=== PATIENT | male | born 1960 | race Caucasian/White ===

== ENCOUNTER 2023-11-18 07:31 | Day surgery (SDC) | payer MEDICAID, SELFPAY ==
[2023-11-18 07:50] VITALS: BP 117/82; PULSE 76; RESP 16; TEMP 36.3; O2SAT 99
[2023-11-18] MEDS: Lidocaine Jelly 2% 20 ML Syringe (URO-JET) 1 APPLIC (07:54)
== END 2023-11-18 08:35 | disposition home or self-care (01) ==
PROVIDERS: PCP Internal Medicine Infectious Disease; Referring Provider Internal Medicine Gastroenterology; Visit Provider Internal Medicine Gastroenterology
PROC: F00ZJWZ Instrumental Swallowing and Oral Function Assessment using Swallowing Equipment (ICD-10-PCS; CPT 43235; principal; 2023-11-18 07:25)
DX: K22.89 Other specified disease of esophagus (principal)
CPT/HCPCS: 91010

== ENCOUNTER 2023-11-29 11:22 | Day surgery (SDC) | payer MEDICAID, SELFPAY ==
[2023-11-29] VITALS (7 sets, daily range): BP systolic 86–127; BP diastolic 53–73; PULSE 82–88; RESP 16; TEMP 36.2–36.8; O2SAT 91–98; BMI 27.6
[2023-11-29] MEDS: Lactated Ringers 1,000 ML 15 ML IV (12:25)
--- NOTE | 2023-11-29 12:30 | EGD_PTH ---
PATIENT: VICENTA ERWIN LOC: EN U#:[id number] AGE/SX: 63/M ROOM: RE11/29/[address]: Dr. Mika Naranjo DO : 1960 BED: DIS: 11/29/2023 SPEC #: [id number] RECD: 11/29/23 14:17 STATUS: JOHANA MIKALA #: [id number] MARIA E: 11/29/23 12:[address]: Mika Naranjo DEPT: SURGICAL PATHOLOGY RECD BY: Ambreen Dowd ENTERED: 11/30/23 10:49 SP TYPE: EGD BIOPSY DACIA DR: Dr. Eduin Martin MD Tissues: Esophagus, NOS Procedures: Special Stain Group I Surgery Specimen Level IV Alcian Blue/PAS (control) HEADER OPERATION: EGD with biopsy and dilatation PRE-OP DIAGNOSIS: Dysphagia TISSUE SUBMITTED: Distal esophagus biopsy MICROSCOPIC DIAGNOSIS Distal esophagus, biopsy: Fragments of gastroesophageal mucosa with chronic inflammation. Intestinal metaplasia (goblet cell metaplasia) not identified. See comment. / 12/01/2023 COMMENT Alcian blue/PAS stain with matched control is used in the evaluation of the specimen. MICROSCOPIC DESCRIPTION Slides are reviewed. GROSS DESCRIPTION Received in fixative is one container labeled with the patient's name and designated Distal esophagus. The specimen consists of two irregular fragments of light ballesteros soft tissue that in aggregate measure 0.6 x 0.4 x 0.1 cm. The specimen is totally submitted in one cassette. / 11/30/2023 TC:3 CPT:78739,64189
[2023-11-29 12:58] LABS: Bedside Glucose 191 mg/dL (74-106)
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
--- NOTE | 2023-11-29 14:04 | OP.CCLET_ITS ---
11/29/2023 Eduin Martin [address] [place] [address] Re : Upper GI endoscopy procedure for Cesar Lakeshia Dear Dr. Maritn This procedure was performed on Wednesday, November 29, 2023. My impressions and recommendations are as follows: Impressions : - Benign-appearing esophageal stenosis. Dilated. - Z-line irregular, 40 cm from the incisors. Biopsied. - Normal stomach. - No gross lesions in the duodenal bulb. Recommendations : - Discharge patient to home. - Resume previous diet. - Continue present medications. - Await pathology results. My findings are described in the full procedure note, which is enclosed. If I can be of further assistance, please feel free to contact me at . Sincerely, Mika Friend, 11/29/2023 2:04:05 PM This report has been signed electronically.
--- NOTE | 2023-11-29 14:04 | OP.EGD_ITS ---
Patient Name: Csear Asher Procedure Date: 11/29/2023 1:46 PM Date of : 1960 Age: 63 Procedure: Upper GI endoscopy Indications: Dysphagia Providers: Mika Naranjo DO Medicines: Monitored Anesthesia Care Patient Profile: This is a 63 year old male. Refer to note in patient chart for documentation of history and physical. Patient has symptoms of chronic epigastric abdominal pain and chronic dysphagia. Complications: No immediate complications. Procedure: Pre-Anesthesia Assessment: - Prior to the procedure, a History and Physical was performed, and patient medications and allergies were reviewed. The patient is competent. The risks and benefits of the procedure and the sedation options and risks were discussed with the patient. All questions were answered and informed consent was obtained. Patient identification and proposed procedure were verified by the physician in the pre-procedure area. Mental Status Examination: alert and oriented. Airway Examination: normal oropharyngeal airway and neck mobility. Respiratory Examination: clear to auscultation. CV Examination: normal. Prophylactic Antibiotics: The patient does not require prophylactic antibiotics. Prior Anticoagulants: The patient has taken no anticoagulant or antiplatelet agents. ASA Grade Assessment: III - A patient with severe systemic disease. After reviewing the risks and benefits, the patient was deemed in satisfactory condition to undergo the procedure. The anesthesia plan was to use monitored anesthesia care (MAC). Immediately prior to administration of medications, the patient was re-assessed for adequacy to receive sedatives. The heart rate, respiratory rate, oxygen saturations, blood pressure, adequacy of pulmonary ventilation, and response to care were monitored throughout the procedure. The physical status of the patient was re-assessed after the procedure. After obtaining informed consent, the endoscope was passed under direct vision. Throughout the procedure, the patient's blood pressure, pulse, and oxygen saturations were monitored continuously. The gastroscope was introduced through the mouth, and advanced to the second part of duodenum. The upper GI endoscopy was accomplished without difficulty. The patient tolerated the procedure well. Scope In: 1:47:45 PM Scope Out: 1:51:58 PM Total Procedure Duration Time 0 hours 4 minutes 13 seconds Findings: One benign-appearing, intrinsic moderate stenosis was found 20 to 23 cm from the incisors. This stenosis measured 3 mm (inner diameter) x 4 cm (in length). The stenosis was traversed. A guidewire was placed and the scope was withdrawn. Dilation was performed with a Savary dilator with no resistance at 60 Fr. The dilation site was examined and showed moderate mucosal disruption. Estimated blood loss was minimal. The Z-line was irregular and was found 40 cm from the incisors. Biopsies were taken with a cold forceps for histology. Verification of patient identification for the specimen was done. Estimated blood loss was minimal. The entire examined stomach was normal. No gross lesions were noted in the duodenal bulb. Impression: - Benign-appearing esophageal stenosis. Dilated. - Z-line irregular, 40 cm from the incisors. Biopsied. - Normal stomach. - No gross lesions in the duodenal bulb. Recommendation: - Discharge patient to home. - Resume previous diet. - Continue present medications. - Await pathology results. Procedure Code(s): --- Professional --- 37165, Esophagogastroduodenoscopy, flexible, transoral; with insertion of guide wire followed by passage of dilator(s) through esophagus over guide wire 78759, 59,51, Esophagogastroduodenoscopy, flexible, transoral; with biopsy, single or multiple CPT copyright 2021 [employer]. All rights reserved. The codes documented in this report are preliminary and upon odd job laborer review may be revised to meet current compliance requirements. Mika Naranjo DO 11/29/2023 2:04:05 PM This report has been signed electronically. Number of Addenda: 0 Note Initiated On: 11/29/2023 1:46 PM
--- NOTE | 2023-11-29 14:41 | SUR.PHASEII ---
THIS NURSE ATTEMPTED TO CALL REPORT TO [facility] TO GIVE REPORT, NO ANSWER. D/C PAPER WORK WAS GIVEN TO PT AND CAREGIVER AND PT AND CAREGIVER FROM SNF VERBALIZED UNDERSTANDING OF D/C INSTRUCTIONS.
== END 2023-11-29 14:46 | disposition home or self-care (01) ==
LOC: EN 11:25 → AC 11:27
PROVIDERS: PCP Internal Medicine Infectious Disease; Referring Provider Internal Medicine Infectious Disease; Visit Provider Internal Medicine Gastroenterology
PROC: 0DJ08ZZ Inspection of Upper Intestinal Tract, Via Natural or Artificial Opening Endoscopic (ICD-10-PCS; CPT 43235; principal; 2023-11-29 12:25)
DX: K22.2 Esophageal obstruction (principal); D12.5 Benign neoplasm of sigmoid colon; R13.10 Dysphagia, unspecified; R19.7 Diarrhea, unspecified; Z86.73 Personal history of transient ischemic attack (TIA), and cerebral infarction without residual deficits; K22.89 Other specified disease of esophagus
CPT/HCPCS: 43248; 43239; 82962; 88305; 88312; J7120; C1769; J2405

== ENCOUNTER 2024-01-31 10:49 | Day surgery (SDC) | payer MEDICAID, SELFPAY ==
[2024-01-31] VITALS (8 sets, daily range): BP systolic 97–132; BP diastolic 59–96; PULSE 72–94; RESP 16–18; TEMP 36.1–36.6; O2SAT 93–98; BMI 28.0
--- NOTE | 2024-01-31 11:17 | PRE.ANES_ITS ---
ASA Classification* ASA Classification ASA Classification: 3 Assessment & Plan Anesthesia* Anesthesia Assessment Anesthesia Assessment: Discussed sedation and/or anesthesia options, risks, benefits, and alternatives with patient/parents/legal guardian/POA. Questions invited. The patient/parents/legal guardian/POA seems to understand and agrees to proceed with anesthesia plan. Reviewed the physical assessment, medical history, allergy history and patient home medications list prior to surgery/procedure/anesthetic and documented any changes. Performed airway and anesthesia risk assessments. Anesthesia Type Anesthesia Type: MAC (*see written preanesthesia record for full assessment) Anesthesia Focused Assessment* Airway Assessment Mouth opens: >3 cm Mallampati Score: II Focused Labs Anesthesia Preop lab: CBC CHEMISTRY POC Glucose 191 mg/dL (74-106) H 11/29/23 12:19 COAG Pre-Assessment Diagnosis/Proposed Procedure Planned Operative Procedure(s): EGD Anesthesia History Anesthesia History - maintenance data analyst: Anesthesia History - maintenance data analyst Hx Hospitalization No 01/26/24 14:13 Any Problems With Anesthesia No 01/26/24 14:13 Cholinesterase deficiency No 01/26/24 14:13 You/Your Family Experience No 01/26/24 14:13 fever (hyperthermia) with Relationship Recent Exposure to Contagious No 11/29/23 12:26 Disease Does patient have nerve No 01/26/24 14:13 stimulator Patient instructed to have device shut off --Does patient have Pacemaker or ICD? When Was Last Pacemaker Check QUESTION #4 FULL TEXT: You/Your Family Experience fever (hyperthermia) with Anesthesia Last Oral Intake Last Oral intake: Last Oral Intake NPO since Meds taken in AM with sips of water? Meds patient instructed to take am of surgery PONV PONV - maintenance data analyst: PONV - maintenance data analyst Female No 01/26/24 14:13 HX of Motion Sickness No 01/26/24 14:13 HX of N/V After Surgery No 01/26/24 14:13 Non-Smoker Yes 01/26/24 14:13 Duration of Surgery greater No 01/26/24 14:13 than 60 minutes Number of Risk Factors 1 01/26/24 14:13 PONV Score Low Risk 01/26/24 14:13 Height & Weight Height & Weight: Anesthesia: Height & Weight Height 5 ft 10 in 11/29/23 12:26 Respiratory Assessment Respiratory Assessment - maintenance data analyst: Respiratory Tract Infection Hx - maintenance data analyst Hx Respiratory Tract Infection No 01/26/24 14:13 STOP Sleep Apnea STOP Sleep Apnea - maintenance data analyst: STOP Sleep Apnea - maintenance data analyst Hx Hypertension Yes 01/26/24 14:13 Hx Sleep Apnea No 01/26/24 14:13 CPAP BIPAP Do you snore loudly (louder No 01/26/24 14:13 than talking or can be heard Do you often feel tired/ Yes 01/26/24 14:13 fatigued/ sleepy during daytime? Has anyone observed you stop No 01/26/24 14:13 breathing during sleep? STOP Results Positive 01/26/24 14:13 QUESTION #5 FULL TEXT : Do you snore loudly (louder than talking or can be heard through closed doors)? Tobacco Use History Tobacco Use History - maintenance data analyst: Tobacco Use History - maintenance data analyst Tobacco Use Smoking Status Never smoker 01/26/24 14:13 Hx Tobacco Use No 01/26/24 14:13 Years Smoking Packs Smoked per Day Smoking Cessation Date was within the last 15 years Hx Smoking Cessation Date Hx Smoking Cessation No 01/26/24 14:13 Counseling Hematologic Medial History Hematologic Hx - maintenance data analyst: Hematologic Medical Hx - millwright supervisor Hx of Blood Transfusion No 01/26/24 14:13 Hx of Transfusion in last 3 No 01/26/24 14:13 Months Date of Last Transfusion (if within last 3 months) Ever experience any problems No 01/26/24 14:13 with transfusion(s)? Specify any problems Hx of Preganancy in last 3 N/A 01/26/24 14:13 Months Nurse Filling Out Transfusion NBUCHER 01/26/24 14:13 & Questions: Date: 01/26/24 01/26/24 14:13 Time: 14:15 01/26/24 14:13 Patient unable to answer at this time (ie. confused, unrespo /Reproduction History /Reproductive History - maintenance data analyst: /Reproductive Hx- maintenance data analyst Hx Now No 01/26/24 14:13 Gestational Age (in weeks): EDC: Hx Hx Para Hx Section SAB No 01/26/24 14:13 Active Medications Active Medications: Current Medications Generic Name Dose Route Start Last Admin Trade Name Freq PRN Reason Stop Dose Admin Lactated Ringer's 1,000 mls @ 15 mls/hr 01/31/24 11:00 IV .Q48H [facility] PFSH Medical History (Updated 01/26/24 @ 14:19 by Hedy Morrell) Hemiplegia affecting left dominant side BPH (benign prostatic hyperplasia) Asperger's syndrome Bladder disease History of renal disease Gastric reflux Non-smoker Insulin dependent diabetes mellitus Uses wheelchair Walker as ambulation aid Wears glasses Lives in skilled nursing Stroke/cerebrovascular accident Cardiology follow-up encounter History of transesophageal echocardiography (HERMILA) History of echocardiogram IBS (irritable bowel syndrome) History of fall Stroke Cardiomyopathy Dysphagia Diverticulosis Colon polyp Hemiplegia Benign prostatic hyperplasia with lower urinary tract symptoms Unspecified systolic (congestive) heart failure Left bundle branch block HLD (hyperlipidemia) Obstructive and reflux uropathy, unspecified GERD (gastroesophageal reflux disease) Aspergers' syndrome Acute kidney failure Elevation of levels of lactic acid dehydrogenase [LDH] HTN (hypertension) Hypo-osmolality and hyponatremia Home Medications ?Medication ?Instructions ?Recorded ?Last Taken ?Type atorvastatin 40 mg tablet 40 mg PO QHS 05/31/22 11/28/23 History clopidogrel 75 mg tablet 75 mg PO DAILY 05/31/22 11/25/23 History empagliflozin 10 mg tablet 10 mg PO DAILY 05/31/22 11/28/23 History (Jardiance) famotidine 20 mg tablet 20 mg PO BID 05/31/22 11/29/23 History insulin aspart U-100 100 unit/mL 6 unit subcut .AC 05/31/22 11/28/23 History (3 mL) subcutaneous pen (Novolog FlexPen U-100 Insulin aspart) insulin glargine 100 unit/mL (3 20 unit subcut QAM 05/31/22 11/28/23 History mL) subcutaneous pen (Basaglar KwikPen U-100 Insulin) lisinopril 5 mg tablet 5 mg PO BID 05/31/22 11/29/23 History methyl salicylate 15 %-menthol 10 1 applic topical DAILY PRN PRN 05/31/22 11/28/23 History % topical cream (Muscle Rub) muscle pain spironolactone 25 mg tablet 25 mg PO QHS 05/31/22 11/28/23 History (Aldactone) tamsulosin 0.4 mg capsule 0.8 mg PO QHS 05/31/22 11/28/23 History carvedilol 12.5 mg tablet 12.5 mg PO BID 11/24/23 11/29/23 History insulin glargine 100 unit/mL (3 60 unit subcut QPM 11/24/23 11/28/23 History mL) subcutaneous pen (Basaglar KwikPen U-100 Insulin) Allergy/AdvReac Type Severity Reaction Status Date / Time poison sun extract Allergy Mild Rash Verified 01/31/24 11:11 poison oak extract Allergy Mild Rash Verified 01/31/24 11:11 Family History Sister CAD (coronary artery disease) Mother Hypertension Diabetes Father Diabetes Social History Smoking Status: Never smoker alcohol intake: current alcohol intake frequency: other Review of Systems (Anesthesia) ROS Narrative System reviewed and no additional complaints, except as documented.
[2024-01-31] MEDS: Lactated Ringers 1,000 ML 15 ML IV (11:21)
--- NOTE | 2024-01-31 12:00 | EGD_PTH ---
PATIENT: VICENTA ERWIN LOC: EN U#:[id number] AGE/SX: 63/M ROOM: RE01/31/[address]: Dr. Mika Naranjo DO : 1960 BED: DIS: 01/31/2024 SPEC #: [id number] RECD: 01/31/24 16:15 STATUS: JOHANA MIKALA #: [id number] MARIA E: 01/31/24 12:[address]: Mika Naranjo DEPT: SURGICAL PATHOLOGY RECD BY: Ambreen Dowd ENTERED: 02/01/24 07:31 SP TYPE: EGD BIOPSY DACIA DR: Dr. Eduin Martin MD Tissues: Esophagus, NOS Procedures: Special Stain Group I Surgery Specimen Level IV Alcian Blue/PAS (control) HEADER OPERATION: EGD with Botox, biopsy PRE-OP DIAGNOSIS: Dysphagia TISSUE SUBMITTED: Distal esophagus biopsy MICROSCOPIC DIAGNOSIS Distal esophagus, biopsy: Gastroesophageal junctional mucosa with mild chronic inflammation. Focal changes of reflux. No evidence of goblet cell metaplasia. See comment. AARON/ 02/02/2024 COMMENT Alcian blue/PAS stain with matched control is used in the evaluation of the specimen. MICROSCOPIC DESCRIPTION Slides are reviewed. GROSS DESCRIPTION Received in fixative is one container labeled with the patient's name and designated Distal esophagus biopsy. The specimen consists of multiple irregular fragments of light ballesteros soft tissue that in aggregate measure 1.5 x 0.5 x 0.1 cm. The specimen is totally submitted in one cassette. YUDI/ 02/01/2024 TC:3 CPT:21731,79529
[2024-01-31 12:29] LABS: Bedside Glucose 196 mg/dL (74-106)
[2024-01-31] MEDS: 0.9% Saline Lock 10 ML Syringe IV (13:00)
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
[2024-01-31] MEDS: 0.9% Normal Saline (Pres. free 10 ML Vial (13:16)
[2024-01-31] MEDS: Botulinum Toxin A 100 Units Vial IJ (13:16)
--- NOTE | 2024-01-31 13:33 | OP.EGD_ITS ---
Patient Name: Cesar Asher Procedure Date: 01/31/2024 1:00 PM Date of : 1960 Age: 63 Procedure: Upper GI endoscopy Indications: Dysphagia Providers: Mika Naranjo DO Referring MD: Eduin Martin Medicines: Monitored Anesthesia Care Patient Profile: This is a 63 year old male. Refer to note in patient chart for documentation of history and physical. Patient has symptoms of chronic dysphagia. Complications: No immediate complications. Procedure: Pre-Anesthesia Assessment: - Prior to the procedure, a History and Physical was performed, and patient medications and allergies were reviewed. The patient is competent. The risks and benefits of the procedure and the sedation options and risks were discussed with the patient. All questions were answered and informed consent was obtained. Patient identification and proposed procedure were verified by the physician in the pre-procedure area. Mental Status Examination: alert and oriented. Airway Examination: normal oropharyngeal airway and neck mobility. Respiratory Examination: clear to auscultation. CV Examination: normal. Prophylactic Antibiotics: The patient does not require prophylactic antibiotics. Prior Anticoagulants: The patient has taken no anticoagulant or antiplatelet agents. ASA Grade Assessment: III - A patient with severe systemic disease. After reviewing the risks and benefits, the patient was deemed in satisfactory condition to undergo the procedure. The anesthesia plan was to use monitored anesthesia care (MAC). Immediately prior to administration of medications, the patient was re-assessed for adequacy to receive sedatives. The heart rate, respiratory rate, oxygen saturations, blood pressure, adequacy of pulmonary ventilation, and response to care were monitored throughout the procedure. The physical status of the patient was re-assessed after the procedure. After obtaining informed consent, the endoscope was passed under direct vision. Throughout the procedure, the patient's blood pressure, pulse, and oxygen saturations were monitored continuously. The was introduced through the mouth, and advanced to the second part of duodenum. The upper GI endoscopy was accomplished without difficulty. The patient tolerated the procedure well. Scope In: 1:10:24 PM Scope Out: 1:23:02 PM Total Procedure Duration Time 0 hours 12 minutes 38 seconds Findings: Grade I varices were found in the middle third of the esophagus and in the lower third of the esophagus. They were 5 mm in largest diameter. Abnormal motility was noted in the middle third of the esophagus and in the lower third of the esophagus. The cricopharyngeus was abnormal. There is a decrease in motility of the esophageal body. The distal esophagus/lower esophageal sphincter is spastic, but gives up passage to the endoscope. Secondary peristaltic waves are noted. Area was successfully injected with 100 units botulinum toxin. A hiatal hernia was present. No gross lesions were noted in the entire examined stomach. No gross lesions were noted in the first portion of the duodenum. Impression: - Grade I esophageal varices. - Abnormal esophageal motility, consistent with achalasia. Injected with botulinum toxin. - Hiatal hernia. - No gross lesions in the entire stomach. - No gross lesions in the first portion of the duodenum. - No specimens collected. Recommendation: - Discharge patient to home. - Resume previous diet. - Continue present medications. - Await pathology results. -Ultrasound with elastography of the liver -Chronic liver disease workup Procedure Code(s): --- Professional --- 54175, Esophagogastroduodenoscopy, flexible, transoral; with directed submucosal injection(s), any substance CPT copyright 2021 [employer]. All rights reserved. The codes documented in this report are preliminary and upon temple meat cutter review may be revised to meet current compliance requirements. Mika Naranjo DO 01/31/2024 1:33:21 PM This report has been signed electronically. Number of Addenda: 0 Note Initiated On: 01/31/2024 1:00 PM
--- NOTE | 2024-01-31 13:34 | OP.CCLET_ITS ---
01/31/2024 Eduin Martin [address] [place] [address] Re : Upper GI endoscopy procedure for Cesar Holliston Dear Dr. Martin This procedure was performed on Wednesday, January 31, 2024. My impressions and recommendations are as follows: Impressions : - Grade I esophageal varices. - Abnormal esophageal motility, consistent with achalasia. Injected with botulinum toxin. - Hiatal hernia. - No gross lesions in the entire stomach. - No gross lesions in the first portion of the duodenum. - No specimens collected. Recommendations : - Discharge patient to home. - Resume previous diet. - Continue present medications. - Await pathology results. -Ultrasound with elastography of the liver -Chronic liver disease workup My findings are described in the full procedure note, which is enclosed. If I can be of further assistance, please feel free to contact me at . Sincerely, Mika Naranjo, 01/31/2024 1:33:21 PM This report has been signed electronically.
--- NOTE | 2024-01-31 13:50 | PCM.POST.ANE ---
Anesthesia: Postop Eval I Current Vital Signs Temperature: 97.8 F Pulse Rate: 77 Blood Pressure: 113/59 Respiratory Rate: 16 Pulse Ox: 97 Oxygen Delivery Method: Nasal Cannula Oxygen Flow Rate (L/min): 3 Assessment Airway patent: Yes Spontaneous unlabored respirations: Yes Mental status: Asleep nausea: No Vomiting: No Anesthesia Complication: No Fluid Hydration Crystalloid volume administer (ml): 400 Total IV fluid infused: 400 Progress Note Anesthesia document: Postop Eval 1 completed: Yes
--- NOTE | 2024-01-31 13:54 | PCM.POSTANE2 ---
Anesthesia Postop Eval I Sum Postop Eval Completion status Anesthesia document: Postop Eval 1 completed: Yes Anesthesia Postop Eval I Summary Anesthesia Postop Eval I Summary: Anesthesia Postop Eval I: Assessment Summary Airway patent Yes 01/31/24 13:51 [email or web address] Spontaneous unlabored Yes 01/31/24 13:51 [email or web address] respirations Mental status Asleep 01/31/24 13:51 [email or web address] nausea No 01/31/24 13:51 [email or web address] Vomiting No 01/31/24 13:51 [email or web address] Anesthesia Postop Eval I: Fluid Summary Crystalloid volume administer 400 01/31/24 13:51 [email or web address] (ml) Colloids volume administered ( ml) Blood Product volume administered (ml) Total IV fluid infused 400 01/31/24 13:51 [email or web address] Anesthesia Postop Eval I: Summary Notes Anesthesia Complication No 01/31/24 13:51 [email or web address] Anesthesia Complication Comment: Post-operative progress note Anesthesia: Postop Eval II Evaluation Mental status: Awake Pain Level: 0 nausea: No Vomiting: No
[2024-01-31 15:08] LABS: Absolute Neutrophil Count 7.5 X10^3/uL (2.0-7.7); Basophil# 0.03 X10^3/uL; Basophil% 0.3 % (0-1); Eosinophil# 0.11 X10^3/uL; Eosinophils% 1.1 % (0-5); Hematocrit 39.4 % (40-54); Hemoglobin 13.1 g/dL (13.0-16.5); Lymphocyte % 14.6 % (19-41); Mean Corp Hgb Conc 33.2 g/dL (32-36); Mean Corpuscular Hgb 30.4 pg (27.0-32.0); Mean Corpuscular Volume 91.4 fL (80-94); Mean Platelet Vol. 10.3 fl (6.2-12.0); Monocyte# 0.53 X10^3/uL; Monocyte% 5.5 % (0-10); NRBC Flagged by Analyzer 0 % (0-5); Neutrophil # 7.48 X10^3/uL (2.7-7.7); Neutrophil % 78.1 % (47-70); Platelet Count 285 K/mm3 (150-450); RBC Distribution Width CV 13.1 % (11.6-14.6); Red Blood Count 4.31 M/mm3 (4.6-6.2); White Blood Count 9.6 K/mm3 (4.4-11.0)
[2024-01-31 15:21] LABS: International Normalized Ratio 0.9; Prothrombin Time (Protime)PT. 12.6 SECONDS (11.7-14.9)
[2024-01-31 15:57] LABS: ALB/GLOB Ratio 0.6 RATIO (0.9-2.4); AST(SGOT) 14 U/L (15-37); Alanine Aminotransfer ALT/SGPT 21 U/L (16-61); Albumin, Serum 2.6 g/dL (3.2-5.0); Alkaline Phosphatase 87 U/L (45-117); Anion Gap 4 (5-15); BUN 20 mg/dL (7-18); BUN/Creat Ratio 16.7 RATIO (10-20); Calcium,Total 8.3 mg/dL (8.5-10.1); Chloride 110 mmol/L (98-107); EST Glomerular Filtration Rate 65 mL/min (>60); Est Glom Filt Rate - Afr Amer 79 mL/min (>60); Estimated Creatinine Clearance 71.61 ml/min; Ferritin 219 ng/mL (26-388); Globulin 4.5 g/dL (2.2-4.2); Glucose 173 mg/dL (74-106); Iron 80 ug/dL (65-175); Iron Binding Capacity,Total 279 ug/dL (250-450); PERCENT IRON SATURATION 28.7 % (15.0-55.0); Protein, Total 7.1 g/dL (6.4-8.2); Sodium Level 141 mmol/L (136-145)
[2024-02-04 10:41] LABS: Anti-Mitochondrial AB <20.0 Units (0.0-20.0)
[2024-02-04 10:42] LABS: AFP, Tumor Marker 1.9 ng/mL (0.0-8.4); Albumin 2.7 g/dL (2.9-4.4); Alpha-1-Globulins 0.3 g/dL (0.0-0.4); Alpha-2-Globulins 1.1 g/dL (0.4-1.0); Anti-Parietal Cell AB, QN 1.5 Units (0.0-20.0); Anti-Smooth Muscle ABS 6 Units (0-19); Ceruloplasmin 28.6 mg/dL (16.0-31.0); Endomysial Antibody IgA Negative (Negative); Gamma Globulin 1.6 g/dL (0.4-1.8); HEPATITIS B SURFACE AG Negative (Negative); Hep C Antibodies Non Reactive (Non Reactive); Hepatitis A IgM Antibody Negative (Negative); Hepatitis B Core AB IgM Negative (Negative); Immunoglobulin A 197 mg/dL (61-437); Immunoglobulin G 1673 mg/dL (603-1613); Immunoglobulin M 72 mg/dL (20-172); PROEL- TOTAL PROTEIN 6.6 g/dL (6.0-8.5); t-Transglutaminase IgA <2 U/mL (0-3)
== END 2024-01-31 14:27 | disposition home or self-care (01) ==
LOC: EN 10:52 → AC 10:53
PROVIDERS: PCP Internal Medicine Infectious Disease; Referring Provider Internal Medicine Infectious Disease; Visit Provider Internal Medicine Gastroenterology
PROC: 0DJ08ZZ Inspection of Upper Intestinal Tract, Via Natural or Artificial Opening Endoscopic (ICD-10-PCS; CPT 43235; principal; 2024-01-31 11:55)
DX: R13.10 Dysphagia, unspecified (principal); I85.00 Esophageal varices without bleeding; E11.9 Type 2 diabetes mellitus without complications; K44.9 Diaphragmatic hernia without obstruction or gangrene; K21.9 Gastro-esophageal reflux disease without esophagitis; Z79.899 Other long term (current) drug therapy; I10 Essential (primary) hypertension; Z86.73 Personal history of transient ischemic attack (TIA), and cerebral infarction without residual deficits; R19.7 Diarrhea, unspecified; Z86.010 Personal history of colon polyps; Z79.02 Long term (current) use of antithrombotics/antiplatelets; E78.5 Hyperlipidemia, unspecified; K22.0 Achalasia of cardia
CPT/HCPCS: 43236; 36415; 80053; 80074; 82105; 82390; 82728; 82784; 82962; 83516; 83540; 83550; 84165; 85025; 85610; 86255; 86334; 88305; 88312; J7120; A4216; J0585; J2405; J3490

== ENCOUNTER → 2024-02-16 | Outpatient (CLI) | payer MEDICAID, SELFPAY ==
--- NOTE | 2024-02-16 07:44 | US_ITS ---
STUDY: ABDOMINAL ULTRASOUND - RIGHT UPPER QUADRANT; ELASTOGRAPHY REASON FOR VISIT: Male, 63 years old. Fatty infiltration of liver. TECHNIQUE: Ultrasound evaluation of the right upper quadrant was performed with real-time and static hager-scale imaging. Point quantification shear wave elastography was performed ([employer]). TECHNICAL QUALITY: Adequate. COMPARISON: None. FINDINGS: Liver: The liver measures 16.4 cm. There is normal echogenicity of the liver. The bile ducts are within normal limits. There is hepatic color flow. The direction of portal flow is hepatopetal. There is no demonstrated mass lesion. Median liver stiffness measured 6.8 kPa. Gallbladder: Normal distended gallbladder. The gallbladder wall measures 2.2 mm. There is a negative sonographic Rodriguez''s sign. There is no pericholecystic fluid. There are no gallstones. Common Bile Duct (C.B.D.): The common bile duct measures 4 mm. Pancreas: There is normal echogenicity of the visualized pancreas. There is no demonstrated pancreatic mass or cyst. Right Kidney: Normal size of the right kidney. The right kidney measures 11.1 cm x 5.7 cm x 5.1 cm. Normal renal cortex. The right cortex measures 1.2 cm. There is no demonstrated renal mass or cyst. There is no right hydronephrosis. US/ABD Limited w/ Elastography IMPRESSION: 1. Liver stiffness measures 6.8 kPa compatible with F2-F3 (Mild to moderate liver fibrosis) Metavir score. Electronically Signed: Preet Coulter MD at 13:03 EDT ,
== END | disposition home or self-care (01) ==
LOC: US 07:43
PROVIDERS: PCP Internal Medicine Infectious Disease; Referring Provider Internal Medicine Gastroenterology; Visit Provider Internal Medicine Gastroenterology
DX: K76.9 Liver disease, unspecified (principal)
CPT/HCPCS: 76705; 76981

== ENCOUNTER → 2025-04-15 | Outpatient (CLI) | payer MEDICAID, SELFPAY ==
--- NOTE | 2025-04-15 08:07 | US_ITS ---
PROCEDURE: ABD LIMITED W/ ELASTOGRAPHY REASON FOR EXAM: LIVER DISEASE COMPARISON: None. TECHNIQUE: Procedure Code: [id number] Modality: US Procedure: ABD LIMITED W/ ELASTOGRAPHY Right upper quadrant abdominal ultrasound. [facility] ElastQ Imaging shear wave elastography for non-invasive assessment of liver tissue stiffness. [employer] EPIQ Elite. FINDINGS: LIVER: Size: Unremarkable Length: 16.7 cm Echotexture: Normal Contour: Normal Lesions: None identified Elastography: EQI Med: 5.8 kPa EQI Med Chadwick: 1.38 m/s IQR/Med: 18.5 %* GALLBLADDER: Normal COMMON BILE DUCT: Normal . PANCREAS: Normal Visualized portions of the right kidney are unremarkable. No right upper quadrant ascites. US/ABD Limited w/ Elastography IMPRESSION: NO TO MILD HEPATIC FIBROSIS Reference Values: SRU <1.37 m/s (5.7kPa): No to mild fibrosis 1.37 m/s - 2.2 m/s: Moderate to severe fibrosis >2.2 m/s (15kPa): Significant fibrosis / cirrhosis METAVIR Score F2 or higher: 1.34 m/s (5.7kPa) F3 or higher: 1.55 m/s (7.3kPa) F4: 1.80 m/s (10kPa) * If the IQR/Med is >30%, the variance in the measurements is a large and the a ccuracy of the measurement may be in question. Reading Location: [place] [id number]
--- NOTE | 2025-04-15 08:07 | US_ITS ---
PROCEDURE: ABD LIMITED W/ ELASTOGRAPHY REASON FOR EXAM: LIVER DISEASE COMPARISON: None. TECHNIQUE: Procedure Code: [id number] Modality: US Procedure: ABD LIMITED W/ ELASTOGRAPHY Right upper quadrant abdominal ultrasound. [facility] ElastQ Imaging shear wave elastography for non-invasive assessment of liver tissue stiffness. [employer] EPIQ Elite. FINDINGS: LIVER: Size: Unremarkable Length: 16.7 cm Echotexture: Normal Contour: Normal Lesions: None identified Elastography: EQI Med: 5.8 kPa EQI Med Chadwick: 1.38 m/s IQR/Med: 18.5 %* GALLBLADDER: Normal COMMON BILE DUCT: Normal . PANCREAS: Normal Visualized portions of the right kidney are unremarkable. No right upper quadrant ascites. US/ABD Limited w/ Elastography IMPRESSION: NO TO MILD HEPATIC FIBROSIS Reference Values: SRU <1.37 m/s (5.7kPa): No to mild fibrosis 1.37 m/s - 2.2 m/s: Moderate to severe fibrosis >2.2 m/s (15kPa): Significant fibrosis / cirrhosis METAVIR Score F2 or higher: 1.34 m/s (5.7kPa) F3 or higher: 1.55 m/s (7.3kPa) F4: 1.80 m/s (10kPa) * If the IQR/Med is >30%, the variance in the measurements is a large and the a ccuracy of the measurement may be in question. Reading Location: [place] [id number]
== END | disposition home or self-care (01) ==
LOC: US 08:04
PROVIDERS: PCP Internal Medicine Infectious Disease; Referring Provider Student in an Organized Health Care Education/Training Program; Visit Provider Student in an Organized Health Care Education/Training Program
DX: K76.9 Liver disease, unspecified (principal)
CPT/HCPCS: 76705; 76981